=== PATIENT | male | born 1995 | race Caucasian/White ===

== ENCOUNTER → 2020-12-12 10:24 | Outpatient (CLI) | payer OTHER, SELFPAY ==
--- NOTE | 2020-12-12 10:29 | DI.US.S_ITS ---
PROCEDURE: US RENAL COMPLETE INDICATIONS: DYSURIA TECHNIQUE: Real-time scanning was performed of the kidneys and bladder, with image documentation. COMPARISON: None. FINDINGS: Kidneys: Kidneys are normal in size. Right kidney measures 10.5 cm long; left kidney measures 11.3 cm long. Right renal cortical thickness is 1.2 cm; left renal cortical thickness is 1.7 cm. Renal cortical echotexture is normal. No nephrolithiasis. No suspicious solid mass lesions. On the right, there is mild hydronephrosis, which appears improved postvoid. Bladder: Pre-void bladder volume is 439 mL. Post-void residual is 320 mL. Pre-void images demonstrate no intraluminal masses or stones. On pre-void images, both ureteral jets are noted with color Doppler interrogation. (Of note, ureteral jets may not be detectable in up to 25% of cases due to insufficient differences in specific gravity between ureteral and bladder urine). Miscellaneous: No free pelvic fluid. IMPRESSION: Moderate postvoid residual, 320 cc. Mild right-sided hydronephrosis is seen, which is improved postvoid. Dictated by: Lenny Goddard M.D. on 12/12/2020 at 12:21 Approved by: Lenny Goddard M.D. on 12/12/2020 at 12:22
== END ==
PROVIDERS: PCP Urology; Referring Provider Urology; Visit Provider Urology
DX: R30.0 Dysuria (principal); R39.15 Urgency of urination; N39.8 Other specified disorders of urinary system; N13.30 Unspecified hydronephrosis
CPT/HCPCS: 76770